=== PATIENT | male | born 1935 | race Caucasian/White ===

== ENCOUNTER 2017-12-05 00:30 | Emergency (ER) | payer MEDICARE ==
[~2017-12-05 00:30] MED LIST: AMLO1CAP2 PO; FENO160T16 PO; PRAV20TA4 PO; SITA100T12 PO; SITA1TAB6 PO
[2017-12-05] MEDS ORDERED: HYDROXYZINE HCL 25 MG TABLET ONE (02:46)
== END 2017-12-05 04:56 | disposition home or self-care (01) ==
LOC: EDH 00:30
DX: R21 Rash and other nonspecific skin eruption (principal)

== ENCOUNTER 2018-10-21 12:11 | Observation (INO) | payer MEDICARE, OTHER ==
[~2018-10-21] VITALS: Ht 167.6 cm; Wt 64.4 kg
[2018-10-21 13:04] LABS: BASOPHILS % (AUTO) 0.6 % (0.0-5.0); EOSINOPHILS % (AUTO) 5.1 % (0.0-8.0); HEMATOCRIT 30.9 % (42-54); LYMPHOCYTES % (AUTO) 11.8 % (21.0-51.0); MEAN CORPUSCULAR HEMOGLOBIN 30.8 pg (27.0-33.0); MEAN CORPUSCULAR HGB CONC 33.2 g/dL (32.0-36.0); MEAN CORPUSCULAR VOLUME 92.8 fL (79-99); MONOCYTES % (AUTO) 6.5 % (3.0-13.0); NUCLEATED RED BLOOD CELLS 0.1 % (0.0-0.19); PLATELET COUNT (AUTO) 227 K/uL (130-400); RED BLOOD CELL COUNT(AUTO) 3.33 MIL/uL (4.50-6.20); RED CELL DISTRIBUTION WIDTH 14.3 % (11.0-15.5); WHITE BLOOD COUNT (AUTO) 6.6 K/uL (4.8-10.8)
[2018-10-21 13:16] LABS: CARBON DIOXIDE 20 mmol/L (21-32); CHLORIDE 104 mmol/L (101-111); CREATININE 2.1 mg/dL (0.5-1.5); GLOMERULAR FILTR. RATE CALC 32 mL/min (>60); GLUCOSE,RANDOM 140 mg/dL (70-105); POTASSIUM 5.1 mmol/L (3.5-5.1); SODIUM SERUM 136 mmol/L (136-145); UREA NITROGEN, BLOOD 34 mg/dL (7-18)
[2018-10-21 13:17] LABS: INR 1.04 (0.85-1.15); PROTHROMBIN TIME 10.9 SEC (9.6-11.6)
[2018-10-21 13:21] LABS: ALANINE AMINOTRANSFERASE 15 U/L (12-78); ALBUMIN 3.2 g/dL (3.5-5.0); ASPARTATE AMINOTRANSFERASE 13 U/L (10-37); BILIRUBIN,TOTAL 0.2 mg/dL (0.2-1.0); TOTAL PROTEIN, SERUM 6.7 g/dL (6.0-8.3)
[2018-10-21 13:22] LABS: ALCOHOL, BLOOD < 3 mg/dL (0-10)
[2018-10-21 14:26] LABS: APPEARANCE,URINE Cloudy (CLEAR); BILIRUBIN,URINE Negative (NEGATIVE); COLOR,URINE Yellow (YELLOW); GLUCOSE, URINE (UA) Negative (NEGATIVE); KETONES,URINE Negative (NEGATIVE); LEUKOCYTE ESTERASE ,URINE Negative (NEGATIVE); NITRATE,URINE Negative (NEGATIVE); OCCULT BLOOD,URINE Negative (NEGATIVE); PROTEIN,URINE POS 1+ (NEGATIVE); UROBILINOGEN,URINE 0.2 mg/dL (0.2-1.0)
[2018-10-21] MEDS: SODIUM CHLORIDE 0.9% 1000ML 1,000 ML IV SCH (14:33)
[2018-10-21] MEDS ORDERED: ONDANSETRON HCL 4 MG/2 ML VIAL IV PRN (14:45)
[2018-10-21] MEDS ORDERED: HYDRALAZINE HCL 20 MG/ML VIAL IV PRN (14:45)
[2018-10-21] MEDS ORDERED: ACETAMINOPHEN 325 MG TAB PO PRN ×2 (14:45)
[2018-10-21 14:52] LABS: AMPHET/METH SCREEN,URINE NEGATIVE (NEGATIVE); BARBITURATE SCREEN, URINE NEGATIVE (NEGATIVE); BENZODIAZEPINES SCREEN,URINE NEGATIVE (NEGATIVE); CANNABINOID SCREEN,URINE NEGATIVE (NEGATIVE); COCAINE SCREEN,URINE NEGATIVE (NEGATIVE); OPIATE SCREEN,URINE NEGATIVE (NEGATIVE); PHENCYCLIDINE SCREEN,URINE NEGATIVE (NEGATIVE)
[2018-10-21 14:58] LABS: % IRON SATURATION 19.6 % (30-44)
[2018-10-21 15:06] LABS: MAGNESIUM 1.9 mg/dL (1.80-2.40); PHOSPHORUS 4.3 mg/dL (2.5-4.9); THYROID STIMULATING HORMONE 4.38 uIU/mL (0.36-3.74)
[2018-10-21 15:08] LABS: BACTERIA,URINE Few /HPF (None Seen); RBC,URINE 0-1 /HPF (0-1)
[2018-10-21 15:09] LABS: MUCUS,URINE Few LPF (None Seen); SQUAMOUS EPITHELIAL CELL,UR Few /HPF (0-2)
[2018-10-21 15:10] LABS: HYALINE CASTS, URINE 0-1 /LPF (0-1 /LPF)
[2018-10-21] MEDS ORDERED: SODIUM CHLORIDE 0.9% 1000ML 1,000 ML IV ONE (16:38)
[2018-10-21] MEDS ORDERED: OSELTAMIVIR PHOSPHATE 75 MG CAP ONE (19:57)
[2018-10-21 23:20] VITALS: BP 114/62
[2018-10-22] MEDS: SODIUM CHLORIDE 0.9% 1000ML 1,000 ML IV SCH ×2 (00:33→13:24)
[2018-10-22 04:32] VITALS: BP 109/70
--- NOTE | 2018-10-22 07:40 | NUR ---
Assessment done. Plan of care discussed with patient. No acute distress at this time.
[2018-10-22 08:08] VITALS: BP 119/66
[2018-10-22] MEDS ORDERED: ENOXAPARIN SODIUM 40 MG/0.4 ML SYRINGE SQ SCH ×2 (09:00)
[2018-10-22] MEDS ORDERED: PANTOPRAZOLE 40 MG/VIAL IVP SCH (09:00)
[2018-10-22] MEDS ORDERED: ENOXAPARIN SODIUM 40 MG/0.4 ML SYRINGE SQ ONE (10:13)
[2018-10-22] MEDS ORDERED: PANTOPRAZOLE SODIUM 40 MG TABLET.DR PO SCH (10:53)
[2018-10-22 11:27] VITALS: BP 155/76
[2018-10-22] MEDS ORDERED: PANTOPRAZOLE SODIUM 40 MG TABLET.DR PO ONE (13:06)
[2018-10-22 13:37] LABS: HEMATOCRIT 32.7 % (42-54); MEAN CORPUSCULAR HEMOGLOBIN 29.9 pg (27.0-33.0); MEAN CORPUSCULAR HGB CONC 32.7 g/dL (32.0-36.0); MEAN CORPUSCULAR VOLUME 91.4 fL (79-99); PLATELET COUNT (AUTO) 224 K/uL (130-400); RED BLOOD CELL COUNT(AUTO) 3.58 MIL/uL (4.50-6.20); RED CELL DISTRIBUTION WIDTH 14.1 % (11.0-15.5); WHITE BLOOD COUNT (AUTO) 5.8 K/uL (4.8-10.8)
[2018-10-22 13:49] LABS: ALBUMIN 3.1 g/dL (3.5-5.0); BILIRUBIN,TOTAL 0.2 mg/dL (0.2-1.0); CREATININE 1.6 mg/dL (0.5-1.5); POTASSIUM 5.2 mmol/L (3.5-5.1); TOTAL PROTEIN, SERUM 6.6 g/dL (6.0-8.3)
[2018-10-22] MEDS ORDERED: OSEL75 PO (15:02)
[2018-10-22] MEDS ORDERED: INSULIN HUMULIN R 100 UNIT/ML 3ML SQ SCH (16:30)
[2018-10-22 17:21] VITALS: BP 151/68
[2018-10-22] MEDS ORDERED: OSELTAMIVIR PHOSPHATE 75 MG CAP PO SCH (21:00)
[2018-10-23] MEDS ORDERED: IRON SUCROSE COMPLEX 100 MG in SODIUM CHLORIDE 0.9% 50 ML IV SCH (09:00)
== END 2018-10-22 18:11 | disposition home or self-care (01) ==
LOC: EDH 12:11 → EDHIP 14:33
PROVIDERS: ADMIT Internal Medicine; ATTEND Internal Medicine
DX: R55 Syncope and collapse (principal); R42 Dizziness and giddiness; M19.90 Unspecified osteoarthritis, unspecified site; C18.9 Malignant neoplasm of colon, unspecified; C34.90 Malignant neoplasm of unspecified part of unspecified bronchus or lung; I12.9 Hypertensive chronic kidney disease with stage 1 through stage 4 chronic kidney disease, or unspecified chronic kidney disease; N18.9 Chronic kidney disease, unspecified; N17.9 Acute kidney failure, unspecified; E11.22 Type 2 diabetes mellitus with diabetic chronic kidney disease; D64.9 Anemia, unspecified; E78.5 Hyperlipidemia, unspecified; E86.0 Dehydration; E86.1 Hypovolemia; J10.1 Influenza due to other identified influenza virus with other respiratory manifestations; J44.9 Chronic obstructive pulmonary disease, unspecified; Z85.038 Personal history of other malignant neoplasm of large intestine; Z85.118 Personal history of other malignant neoplasm of bronchus and lung; Z85.858 Personal history of malignant neoplasm of other endocrine glands; Z87.891 Personal history of nicotine dependence; Z90.49 Acquired absence of other specified parts of digestive tract; Z83.3 Family history of diabetes mellitus; Z82.49 Family history of ischemic heart disease and other diseases of the circulatory system; Z79.899 Other long term (current) drug therapy
CPT/HCPCS: 36415 ×2; 70450; 80053 ×2; 80305; 81001; 82550; 82948; 83540; 83550; 83735; 84100; 84443; 84484; 85025; 85027; 85610; 85730; 87804 ×2; 93005; 93306; 93880; 96360; 96361 ×2; 96372; 99284; G0378 ×28; G0480; J1650; J7030; J1756

== ENCOUNTER 2022-06-24 14:19 | Emergency (ER) | payer OTHER ==
[~2022-06-24] VITALS: Ht 182.9 cm; Wt 59.0 kg
[~2022-06-24 14:19] MED LIST changes: -AMLO1CAP2 PO; -FENO160T16 PO; +OSEL75 PO; -PRAV20TA4 PO; -SITA100T12 PO; -SITA1TAB6 PO
[2022-06-24 14:59] LABS: BASOPHILS % (AUTO) 0.5 % (0.0-5.0); EOSINOPHILS % (AUTO) 3.5 % (0.0-8.0); HEMATOCRIT 30.7 % (42-54); LYMPHOCYTES % (AUTO) 23.7 % (21.0-51.0); MEAN CORPUSCULAR HEMOGLOBIN 31.8 pg (27.0-33.0); MEAN CORPUSCULAR HGB CONC 31.9 g/dL (32.0-36.0); MEAN CORPUSCULAR VOLUME 99.7 fL (79-99); MONOCYTES % (AUTO) 8.3 % (3.0-13.0); NEUTROPHILS % (AUTO) 63.7 % (40.0-77.0); PLATELET COUNT (AUTO) 171 K/uL (130-400); RED BLOOD CELL COUNT(AUTO) 3.08 MIL/uL (4.50-6.20); RED CELL DISTRIBUTION WIDTH 14.8 % (11.0-15.5); WHITE BLOOD COUNT (AUTO) 6.6 K/uL (4.8-10.8)
[2022-06-24 15:09] LABS: POTASSIUM 5.5 mmol/L (3.5-5.1)
[2022-06-24 15:14] LABS: APPEARANCE,URINE TURBID (CLEAR); BILIRUBIN,URINE NEGATIVE (NEGATIVE); COLOR,URINE RED (YELLOW); GLUCOSE, URINE (UA) NEGATIVE (NEGATIVE); KETONES,URINE NEGATIVE (NEGATIVE); LEUKOCYTE ESTERASE ,URINE TRACE (NEGATIVE); NITRATE,URINE NEGATIVE (NEGATIVE); OCCULT BLOOD,URINE LARGE (NEGATIVE); PROTEIN,URINE 100 mg/dL (NEGATIVE); UROBILINOGEN,URINE 0.2 mg/dL (0.2-1.0)
[2022-06-24 15:14] LABS: ALBUMIN 3.8 g/dL (3.5-5.0); TOTAL PROTEIN, SERUM 6.9 g/dL (6.0-8.3)
[2022-06-24 15:30] LABS: BACTERIA,URINE Rare /HPF (None Seen); RBC,URINE TNTC /HPF (0-1); SQUAMOUS EPITHELIAL CELL,UR None Seen /HPF (0-2); WBC,URINE 0-1 /HPF (0-1)
[2022-06-24] MEDS ORDERED: 0.9%NACL 1000ML 1,000 ML IV ONE (16:30)
[2022-06-24 18:28] VITALS: BP 133/64
== END 2022-06-24 18:48 | disposition home or self-care (01) ==
LOC: EDH 14:19
DX: N32.89 Other specified disorders of bladder (principal); R31.9 Hematuria, unspecified; I10 Essential (primary) hypertension; Z85.118 Personal history of other malignant neoplasm of bronchus and lung; Z85.038 Personal history of other malignant neoplasm of large intestine
CPT/HCPCS: 36415; 71250; 74176; 80053; 81001; 85025

== ENCOUNTER 2023-05-28 14:37 | Inpatient (IN) | payer OTHER ==
[~2023-05-28] VITALS: Ht 160 cm; Wt 48.6 kg
[2023-05-28] VITALS (11 sets, daily range): BP systolic 110–135; BP diastolic 52–62; PULSE 48–58; RESP 8–24; O2SAT 96
[~2023-05-28 14:37] MED LIST changes: +FOLI1TAB85 PO; -OSEL75 PO
[2023-05-28] MEDS ORDERED: ZOSYN 3.375GM+NS 50ML 50 ML IVPB ONE (14:56)
[2023-05-28] MEDS ORDERED: 0.9%NACL 1000ML 1,000 ML IV ONE (14:56)
[2023-05-28 15:27] LABS: APPEARANCE,URINE CLOUDY (CLEAR); BILIRUBIN,URINE NEGATIVE (NEGATIVE); COLOR,URINE YELLOW (YELLOW); GLUCOSE, URINE (UA) NEGATIVE (NEGATIVE); KETONES,URINE NEGATIVE (NEGATIVE); LEUKOCYTE ESTERASE ,URINE 500 Leu/uL (NEGATIVE); NITRATE,URINE NEGATIVE (NEGATIVE); OCCULT BLOOD,URINE MODERATE (NEGATIVE); PROTEIN,URINE 100 mg/dL (NEGATIVE); UROBILINOGEN,URINE 0.2 mg/dL (0.2-1.0)
[2023-05-28 15:27] LABS: BASOPHILS # (AUTO) 0.01 K/uL (0.00-0.20); BASOPHILS % (AUTO) 0.1 % (0.0-5.0); HEMATOCRIT 26.9 % (42-54); IMMATURE GRANULOCYTE ABSOLUTE 0.04 K/uL (0-1); LYMPHOCYTES # (AUTO) 0.2 K/uL (1.0-4.8); LYMPHOCYTES % (AUTO) 2.6 % (21.0-51.0); MEAN CORPUSCULAR HEMOGLOBIN 31.7 pg (27.0-33.0); MEAN CORPUSCULAR HGB CONC 32.7 g/dL (32.0-36.0); MEAN CORPUSCULAR VOLUME 96.8 fL (79-99); MONOCYTES # (AUTO) 0.1 K/uL (0.1-1.0); MONOCYTES % (AUTO) 1.9 % (3.0-13.0); NEUTROPHILS # (AUTO) 6.9 K/uL (1.8-7.7); NEUTROPHILS % (AUTO) 94.8 % (40.0-77.0); PLATELET COUNT (AUTO) 86 K/uL (130-400); RED BLOOD CELL COUNT(AUTO) 2.78 MIL/uL (4.50-6.20); WHITE BLOOD COUNT (AUTO) 7.3 K/uL (4.8-10.8)
[2023-05-28 15:31] LABS: ADD UA MICROSCOPIC YES
[2023-05-28 15:36] LABS: BACTERIA,URINE MOD /HPF (None Seen); SQUAMOUS EPITHELIAL CELL,UR RARE /HPF (0-2); WBC,URINE TNTC /HPF (0-1)
[2023-05-28 15:37] LABS: ALBUMIN 2.4 g/dL (3.5-5.0); BILIRUBIN,TOTAL 0.4 mg/dL (0.2-1.0); CREATININE 2.7 mg/dL (0.5-1.5); MAGNESIUM 1.8 mg/dL (1.80-2.40); TOTAL PROTEIN, SERUM 6.3 g/dL (6.0-8.3)
[2023-05-28 15:41] LABS: INR 1.05 (0.85-1.15); PROTHROMBIN TIME 12.1 SEC (9.6-11.6)
[2023-05-28 15:43] LABS: PARTIAL THROMBOPLASTIN TIME 69.5 SEC (26.3-35.5)
[2023-05-28 16:01] LABS: INFLUENZA TYPE A Negative For Type A (NEGATIVE); INFLUENZA TYPE B Negative For Type B (NEGATIVE)
[2023-05-28 16:14] LABS: SARS-CoV-2, RNA, NAAT NEGATIVE SARS CoV-2 (NEGATIVE)
[2023-05-28] MEDS ORDERED: PHARMACY COMMUNICATION MISC STA (16:31)
[2023-05-28] MEDS ORDERED: MEROPENEM 500 MG/100ML CRCL 10-25 IV SCH ×2 (17:00)
[2023-05-28] MEDS ORDERED: NOREPINEPHRIN 4MG/NS 250ML 250 ML IV SCH (17:00)
[2023-05-28] MEDS ORDERED: VANCOMYCIN PROTOCOL PER PHARMACY IV SCH (17:00)
[2023-05-28] MEDS ORDERED: ACETAMINOPHEN 325 MG TAB PO ONE (17:00)
[2023-05-28] MEDS ORDERED: VANCOMYCIN KIT 1 GM/250 ML IV.KIT IV SCH (17:30)
[2023-05-28] MEDS ORDERED: MEROPENEM 500 MG/100ML CRCL 10-25 IV ONE ×2 (17:30)
[2023-05-28] MEDS ORDERED: KCL 20 MEQ ERTAB PO ONE (19:00)
[2023-05-29] VITALS (52 sets, daily range): BP systolic 89–150; BP diastolic 38–94; PULSE 51–76; RESP 14–40; O2SAT 94–98
[2023-05-29 03:46] LABS: BASOPHILS # (AUTO) 0.03 K/uL (0.00-0.20); BASOPHILS % (AUTO) 0.3 % (0.0-5.0); EOSINOPHILS # (AUTO) 0.04 K/uL (0.00-0.70); EOSINOPHILS % (AUTO) 0.4 % (0.0-8.0); HEMATOCRIT 28.2 % (42-54); IMMATURE GRANULOCYTE ABSOLUTE 0.08 K/uL (0-1); LYMPHOCYTES # (AUTO) 0.8 K/uL (1.0-4.8); LYMPHOCYTES % (AUTO) 7.5 % (21.0-51.0); MEAN CORPUSCULAR HEMOGLOBIN 31.7 pg (27.0-33.0); MEAN CORPUSCULAR HGB CONC 32.3 g/dL (32.0-36.0); MEAN CORPUSCULAR VOLUME 98.3 fL (79-99); MONOCYTES # (AUTO) 0.9 K/uL (0.1-1.0); MONOCYTES % (AUTO) 8.5 % (3.0-13.0); NEUTROPHILS # (AUTO) 8.5 K/uL (1.8-7.7); NEUTROPHILS % (AUTO) 82.5 % (40.0-77.0); PLATELET COUNT (AUTO) 71 K/uL (130-400); RED BLOOD CELL COUNT(AUTO) 2.87 MIL/uL (4.50-6.20); RED CELL DISTRIBUTION WIDTH 15.2 % (11.0-15.5); WHITE BLOOD COUNT (AUTO) 10.3 K/uL (4.8-10.8)
[2023-05-29 04:05] LABS: CREATININE 3.5 mg/dL (0.5-1.5); PHOSPHORUS 4.1 mg/dL (2.5-4.9)
[2023-05-29] MEDS ORDERED: POTASSIUM CHLORIDE 10MEQ/100ML 10 MEQ/100 ML ML IV ONE (05:00)
[2023-05-29] MEDS ORDERED: NITROGLYCERIN 0.4 MG SL TAB SL PRN (09:30)
[2023-05-29] MEDS ORDERED: GUAIFENESIN-DM 200/20 MG 10 ML PO PRN (09:30)
[2023-05-29] MEDS ORDERED: DiphenhydrAMINE HCL 50 MG/ML VIAL IV PRN (09:30)
[2023-05-29] MEDS ORDERED: DIPHENHYDRAMINE HCL 25 MG CAPSULE PO PRN (09:30)
[2023-05-29] MEDS ORDERED: ACETAMINOPHEN 325 MG TAB PO PRN (09:30)
[2023-05-29] MEDS ORDERED: LACTULOSE 20 GM/30 ML UDCUP PO PRN (09:30)
[2023-05-29] MEDS ORDERED: ONDANSETRON 4MG INJ IV PRN (09:30)
[2023-05-29] MEDS ORDERED: MAG/ALUM/SIMETH 30 ML UDCUP PO PRN (09:30)
[2023-05-29] MEDS ORDERED: MIDODRINE HCL 5 MG TABLET ONE (11:48)
[2023-05-29] MEDS: MIDODRINE HCL 5 MG TABLET PO SCH ×3 (11:51→21:07)
[2023-05-29] MEDS: HEPARIN 5,000 UNIT VIAL SQ SCH ×2 (13:35→21:12)
[2023-05-29] MEDS ORDERED: KCL 20 MEQ ERTAB PO ONE (16:00)
[2023-05-29] MEDS: MEROPENEM IV SCH ×2 (17:26)
[2023-05-29] MEDS: NS IV SCH ×2 (17:26)
[2023-05-29] MEDS: [UNRECOGNIZED DRUG - OTHER] IV SCH ×2 (17:26)
[2023-05-29] MEDS ORDERED: FAMOTIDINE 20MG VIAL IV SCH (21:00)
[2023-05-29] MEDS: FAMOTIDINE 20MG TAB PO SCH (21:07)
[2023-05-30] VITALS (24 sets, daily range): BP systolic 87–136; BP diastolic 42–80; PULSE 54–77; RESP 16–20; TEMP 98–98.2; O2SAT 97–100
[2023-05-30 03:56] LABS: BASOPHILS # (AUTO) 0.03 K/uL (0.00-0.20); BASOPHILS % (AUTO) 0.3 % (0.0-5.0); EOSINOPHILS # (AUTO) 0.06 K/uL (0.00-0.70); EOSINOPHILS % (AUTO) 0.6 % (0.0-8.0); IMMATURE GRANULOCYTE ABSOLUTE 0.16 K/uL (0-1); LYMPHOCYTES # (AUTO) 1.1 K/uL (1.0-4.8); LYMPHOCYTES % (AUTO) 10.8 % (21.0-51.0); MEAN CORPUSCULAR HEMOGLOBIN 31.3 pg (27.0-33.0); MEAN CORPUSCULAR HGB CONC 32.4 g/dL (32.0-36.0); MEAN CORPUSCULAR VOLUME 96.7 fL (79-99); MONOCYTES % (AUTO) 9.7 % (3.0-13.0); NEUTROPHILS # (AUTO) 7.7 K/uL (1.8-7.7); PLATELET COUNT (AUTO) 69 K/uL (130-400); RED CELL DISTRIBUTION WIDTH 15.4 % (11.0-15.5); WHITE BLOOD COUNT (AUTO) 10.1 K/uL (4.8-10.8)
[2023-05-30 04:10] LABS: CREATININE 4.6 mg/dL (0.5-1.5); PHOSPHORUS 3.8 mg/dL (2.5-4.9); POTASSIUM 3.5 mmol/L (3.5-5.1)
[2023-05-30 05:28] LABS: HEPATITIS B SURFACE ANTIGEN Non-Reactive (Nonreactive)
[2023-05-30] MEDS: MIDODRINE HCL 5 MG TABLET PO SCH ×3 (09:51→20:46)
[2023-05-30] MEDS: HEPARIN 5,000 UNIT VIAL SQ SCH ×3 (09:51→21:00)
[2023-05-30] MEDS ORDERED: COMPOUND IV MISC 1 EACH IVSOLN MISC PRN (12:00)
[2023-05-30] MEDS ORDERED: VANCOMYCIN 750MG VIAL IVPB SCH (16:00)
[2023-05-30] MEDS: MEROPENEM IV SCH ×2 (18:25)
[2023-05-30] MEDS: NS IV SCH ×2 (18:25)
[2023-05-30] MEDS: [UNRECOGNIZED DRUG - OTHER] IV SCH ×2 (18:25)
[2023-05-30] MEDS: FAMOTIDINE 20MG TAB PO SCH (20:46)
[2023-05-31] MEDS ORDERED: FENTANYL CITRATE PF 50 MCG/1 ML 2ML VIAL ONE (10:02)
[2023-05-31] MEDS ORDERED: MIDAZOLAM HCL 1 MG/ML 2ML VIAL ONE (10:02)
[2023-05-31] MEDS ORDERED: LIDOCAINE HCL 1% MDV 50ML VIAL ONE (10:02)
[2023-05-31] MEDS ORDERED: HEPARIN 1,000 UNIT VIAL ONE (10:24)
[2023-05-31] MEDS ORDERED: OCTYL 2-CYANOACRYLATE 1 EACH TP ONE (10:30)
[2023-05-31] MEDS: MEROPENEM IV SCH ×2 (18:00)
[2023-05-31] MEDS: NS IV SCH ×2 (18:00)
[2023-05-31] MEDS: [UNRECOGNIZED DRUG - OTHER] IV SCH ×2 (18:00)
[2023-05-31 20:35] VITALS: O2SAT 95
[2023-05-31] MEDS: HEPARIN 5,000 UNIT VIAL SQ SCH (21:00)
[2023-05-31] MEDS: FAMOTIDINE 20MG TAB PO SCH (21:00)
[2023-05-31] MEDS: MIDODRINE HCL 5 MG TABLET PO SCH (21:00)
[2023-06-01] VITALS (7 sets, daily range): BP systolic 114–137; BP diastolic 48–66; PULSE 62–72; RESP 16; O2SAT 98
[2023-06-01 03:41] LABS: BASOPHILS # (AUTO) 0.02 K/uL (0.00-0.20); BASOPHILS % (AUTO) 0.2 % (0.0-5.0); EOSINOPHILS # (AUTO) 0.04 K/uL (0.00-0.70); EOSINOPHILS % (AUTO) 0.4 % (0.0-8.0); HEMATOCRIT 29.5 % (42-54); IMMATURE GRANULOCYTE ABSOLUTE 0.08 K/uL (0-1); LYMPHOCYTES # (AUTO) 1.2 K/uL (1.0-4.8); LYMPHOCYTES % (AUTO) 11.9 % (21.0-51.0); MEAN CORPUSCULAR HGB CONC 32.2 g/dL (32.0-36.0); MEAN CORPUSCULAR VOLUME 96.4 fL (79-99); MONOCYTES # (AUTO) 0.6 K/uL (0.1-1.0); MONOCYTES % (AUTO) 6.4 % (3.0-13.0); NEUTROPHILS % (AUTO) 80.3 % (40.0-77.0); PLATELET COUNT (AUTO) 105 K/uL (130-400); RED BLOOD CELL COUNT(AUTO) 3.06 MIL/uL (4.50-6.20)
[2023-06-01 03:51] LABS: CREATININE 4.5 mg/dL (0.5-1.5); POTASSIUM 3.2 mmol/L (3.5-5.1)
[2023-06-01] MEDS ORDERED: POTASSIUM CHLORIDE 20 MEQ/100 ML BAG IV SCH (08:00)
[2023-06-01 08:30] LABS: HEMATOCRIT 29.1 % (42-54); MEAN CORPUSCULAR HEMOGLOBIN 31.7 pg (27.0-33.0); MEAN CORPUSCULAR HGB CONC 32.6 g/dL (32.0-36.0); PLATELET COUNT (AUTO) 78 K/uL (130-400); RED CELL DISTRIBUTION WIDTH 15.1 % (11.0-15.5); WHITE BLOOD COUNT (AUTO) 8.6 K/uL (4.8-10.8)
[2023-06-01 08:31] LABS: BASOPHILS % (AUTO) 0.2 % (0.0-5.0); EOSINOPHILS % (AUTO) 0.5 % (0.0-8.0); LYMPHOCYTES % (AUTO) 11.8 % (21.0-51.0); MONOCYTES % (AUTO) 8.3 % (3.0-13.0)
[2023-06-01 08:32] LABS: BASOPHILS # (AUTO) 0.02 K/uL (0.00-0.20); EOSINOPHILS # (AUTO) 0.04 K/uL (0.00-0.70); MONOCYTES # (AUTO) 0.7 K/uL (0.1-1.0); NEUTROPHILS # (AUTO) 6.7 K/uL (1.8-7.7)
[2023-06-01 08:33] LABS: POTASSIUM 3.3 mmol/L (3.5-5.1)
[2023-06-01 08:34] LABS: CREATININE 3.6 mg/dL (0.5-1.5)
[2023-06-01] MEDS: HEPARIN 5,000 UNIT VIAL SQ SCH ×3 (09:44→22:06)
[2023-06-01] MEDS: MIDODRINE HCL 5 MG TABLET PO SCH ×3 (09:45→22:01)
[2023-06-01] MEDS: NS IV SCH ×2 (18:02)
[2023-06-01] MEDS: [UNRECOGNIZED DRUG - OTHER] IV SCH ×2 (18:02)
[2023-06-01] MEDS: MEROPENEM IV SCH ×2 (18:02)
[2023-06-01] MEDS: FAMOTIDINE 20MG TAB PO SCH (22:00)
[2023-06-02] VITALS (23 sets, daily range): BP systolic 93–149; BP diastolic 56–72; PULSE 55–80; RESP 16–20; TEMP 98–98.2; O2SAT 97
[2023-06-02 03:50] LABS: BASOPHILS # (AUTO) 0.02 K/uL (0.00-0.20); BASOPHILS % (AUTO) 0.2 % (0.0-5.0); EOSINOPHILS # (AUTO) 0.09 K/uL (0.00-0.70); EOSINOPHILS % (AUTO) 0.8 % (0.0-8.0); IMMATURE GRANULOCYTE ABSOLUTE 0.09 K/uL (0-1); LYMPHOCYTES # (AUTO) 1.1 K/uL (1.0-4.8); LYMPHOCYTES % (AUTO) 9.6 % (21.0-51.0); MEAN CORPUSCULAR HEMOGLOBIN 31.3 pg (27.0-33.0); MEAN CORPUSCULAR HGB CONC 32.4 g/dL (32.0-36.0); MEAN CORPUSCULAR VOLUME 96.7 fL (79-99); MONOCYTES # (AUTO) 0.6 K/uL (0.1-1.0); MONOCYTES % (AUTO) 5.4 % (3.0-13.0); NEUTROPHILS # (AUTO) 9.4 K/uL (1.8-7.7); NEUTROPHILS % (AUTO) 83.2 % (40.0-77.0); PLATELET COUNT (AUTO) 141 K/uL (130-400); RED CELL DISTRIBUTION WIDTH 14.9 % (11.0-15.5); WHITE BLOOD COUNT (AUTO) 11.3 K/uL (4.8-10.8)
[2023-06-02 04:02] LABS: ALBUMIN 1.8 g/dL (3.5-5.0); BILIRUBIN,TOTAL 0.3 mg/dL (0.2-1.0); CREATININE 5.6 mg/dL (0.5-1.5); PHOSPHORUS 4.5 mg/dL (2.5-4.9); POTASSIUM 3.7 mmol/L (3.5-5.1); TOTAL PROTEIN, SERUM 5.6 g/dL (6.0-8.3)
[2023-06-02] MEDS: MIDODRINE HCL 5 MG TABLET PO SCH ×3 (09:06→20:59)
[2023-06-02] MEDS: HEPARIN 5,000 UNIT VIAL SQ SCH ×3 (09:10→21:03)
[2023-06-02] MEDS ORDERED: HEPARIN 5,000 UNIT VIAL IV STA (15:02)
[2023-06-02] MEDS: MEROPENEM IV SCH ×2 (18:14)
[2023-06-02] MEDS: NS IV SCH ×2 (18:14)
[2023-06-02] MEDS: [UNRECOGNIZED DRUG - OTHER] IV SCH ×2 (18:14)
[2023-06-02] MEDS: FAMOTIDINE 20MG TAB PO SCH (20:59)
[2023-06-03] VITALS (8 sets, daily range): BP systolic 111–143; BP diastolic 54–69; PULSE 60–75; RESP 18–20; O2SAT 97
[2023-06-03 04:06] LABS: HEMATOCRIT 28.9 % (42-54); MEAN CORPUSCULAR HEMOGLOBIN 31.1 pg (27.0-33.0); MEAN CORPUSCULAR HGB CONC 32.2 g/dL (32.0-36.0); MEAN CORPUSCULAR VOLUME 96.7 fL (79-99); PLATELET COUNT (AUTO) 141 K/uL (130-400); RED BLOOD CELL COUNT(AUTO) 2.99 MIL/uL (4.50-6.20); RED CELL DISTRIBUTION WIDTH 14.6 % (11.0-15.5); WHITE BLOOD COUNT (AUTO) 10.9 K/uL (4.8-10.8)
[2023-06-03 04:33] LABS: ALBUMIN 1.8 g/dL (3.5-5.0); BILIRUBIN,TOTAL 0.4 mg/dL (0.2-1.0); CREATININE 3.6 mg/dL (0.5-1.5); MAGNESIUM 1.8 mg/dL (1.80-2.40); PHOSPHORUS 4.5 mg/dL (2.5-4.9); POTASSIUM 3.6 mmol/L (3.5-5.1); TOTAL PROTEIN, SERUM 5.6 g/dL (6.0-8.3)
[2023-06-03 04:46] LABS: LYMPHOCYTES % (MANUAL) 8 % (22-44); MAN.DIFF COMMENT-IMPRESSION MANUAL DIFFERENTIAL; MONOCYTES % (MANUAL) 3 % (2-9); MYELOCYTES % 1 % (0-0); SEGMENTED NEUTROPHILS % 88 % (40-70); TOTAL CELLS COUNTED 100
[2023-06-03 04:47] LABS: PLATELET MORPHOLOGY COMMENT ADEQUATE
[2023-06-03] MEDS: MIDODRINE HCL 5 MG TABLET PO SCH ×3 (09:10→20:36)
[2023-06-03] MEDS: HEPARIN 5,000 UNIT VIAL SQ SCH ×3 (09:14→20:37)
[2023-06-03] MEDS: MEROPENEM IV SCH ×2 (17:01)
[2023-06-03] MEDS: [UNRECOGNIZED DRUG - OTHER] IV SCH ×2 (17:01)
[2023-06-03] MEDS: NS IV SCH ×2 (17:01)
[2023-06-03] MEDS: FAMOTIDINE 20MG TAB PO SCH (20:37)
[2023-06-04] VITALS (22 sets, daily range): BP systolic 107–138; BP diastolic 56–67; PULSE 58–70; RESP 16–18; TEMP 97.9–98.4; O2SAT 99
[2023-06-04 04:02] LABS: BASOPHILS # (AUTO) 0.03 K/uL (0.00-0.20); BASOPHILS % (AUTO) 0.2 % (0.0-5.0); EOSINOPHILS # (AUTO) 0.06 K/uL (0.00-0.70); EOSINOPHILS % (AUTO) 0.4 % (0.0-8.0); HEMATOCRIT 29.4 % (42-54); IMMATURE GRANULOCYTE ABSOLUTE 0.13 K/uL (0-1); LYMPHOCYTES # (AUTO) 1.3 K/uL (1.0-4.8); LYMPHOCYTES % (AUTO) 9.9 % (21.0-51.0); MEAN CORPUSCULAR HEMOGLOBIN 30.6 pg (27.0-33.0); MEAN CORPUSCULAR HGB CONC 31.6 g/dL (32.0-36.0); MEAN CORPUSCULAR VOLUME 96.7 fL (79-99); MONOCYTES # (AUTO) 0.7 K/uL (0.1-1.0); MONOCYTES % (AUTO) 5.2 % (3.0-13.0); NEUTROPHILS # (AUTO) 11.2 K/uL (1.8-7.7); NEUTROPHILS % (AUTO) 83.3 % (40.0-77.0); PLATELET COUNT (AUTO) 180 K/uL (130-400); RED BLOOD CELL COUNT(AUTO) 3.04 MIL/uL (4.50-6.20); RED CELL DISTRIBUTION WIDTH 14.6 % (11.0-15.5); WHITE BLOOD COUNT (AUTO) 13.4 K/uL (4.8-10.8)
[2023-06-04 04:22] LABS: ALBUMIN 1.8 g/dL (3.5-5.0); BILIRUBIN,DIRECT 0.1 mg/dL (0.0-0.3); BILIRUBIN,TOTAL 0.4 mg/dL (0.2-1.0); CREATININE 4.8 mg/dL (0.5-1.5); PHOSPHORUS 5.9 mg/dL (2.5-4.9); POTASSIUM 3.7 mmol/L (3.5-5.1); TOTAL PROTEIN, SERUM 5.9 g/dL (6.0-8.3)
[2023-06-04] MEDS: MIDODRINE HCL 5 MG TABLET PO SCH ×3 (08:37→20:27)
[2023-06-04] MEDS: HEPARIN 5,000 UNIT VIAL SQ SCH ×3 (08:38→20:31)
[2023-06-04] MEDS: MEROPENEM IV SCH ×2 (17:11)
[2023-06-04] MEDS: [UNRECOGNIZED DRUG - OTHER] IV SCH ×2 (17:11)
[2023-06-04] MEDS: NS IV SCH ×2 (17:11)
[2023-06-04] MEDS: HEPARIN 5,000 UNIT VIAL SQ PRN (17:30)
[2023-06-04] MEDS: FAMOTIDINE 20MG TAB PO SCH (20:29)
[2023-06-05] VITALS (7 sets, daily range): BP systolic 118–152; BP diastolic 59–85; PULSE 65–81; RESP 18–19; O2SAT 98
[2023-06-05 05:15] LABS: HEMATOCRIT 29.3 % (42-54); MEAN CORPUSCULAR HEMOGLOBIN 30.8 pg (27.0-33.0); MEAN CORPUSCULAR HGB CONC 32.1 g/dL (32.0-36.0); MEAN CORPUSCULAR VOLUME 96.1 fL (79-99); RED BLOOD CELL COUNT(AUTO) 3.05 MIL/uL (4.50-6.20); RED CELL DISTRIBUTION WIDTH 14.4 % (11.0-15.5); WHITE BLOOD COUNT (AUTO) 11.3 K/uL (4.8-10.8)
[2023-06-05 05:31] LABS: ALBUMIN 1.9 g/dL (3.5-5.0); BILIRUBIN,TOTAL 0.3 mg/dL (0.2-1.0); CREATININE 3.3 mg/dL (0.5-1.5); MAGNESIUM 1.9 mg/dL (1.80-2.40); POTASSIUM 3.8 mmol/L (3.5-5.1); TOTAL PROTEIN, SERUM 6.1 g/dL (6.0-8.3)
[2023-06-05] MEDS: MIDODRINE HCL 5 MG TABLET PO SCH ×3 (10:54→20:06)
[2023-06-05] MEDS: HEPARIN 5,000 UNIT VIAL SQ SCH ×3 (10:55→20:08)
[2023-06-05 17:16] LABS: INR 1.01 (0.85-1.15); PROTHROMBIN TIME 11.7 SEC (9.6-11.6)
[2023-06-05 17:18] LABS: PARTIAL THROMBOPLASTIN TIME 44.7 SEC (26.3-35.5)
[2023-06-05] MEDS: FAMOTIDINE 20MG TAB PO SCH (20:06)
[2023-06-05] MEDS: [UNRECOGNIZED DRUG - OTHER] IV SCH ×2 (21:13)
[2023-06-05] MEDS: NS IV SCH ×2 (21:13)
[2023-06-05] MEDS: MEROPENEM IV SCH ×2 (21:13)
[2023-06-06] VITALS (24 sets, daily range): BP systolic 96–150; BP diastolic 52–80; PULSE 54–71; RESP 16–18; TEMP 98.2–98.3; O2SAT 94–96
[2023-06-06 05:06] LABS: BASOPHILS # (AUTO) 0.02 K/uL (0.00-0.20); BASOPHILS % (AUTO) 0.2 % (0.0-5.0); HEMATOCRIT 29.1 % (42-54); IMMATURE GRANULOCYTE ABSOLUTE 0.05 K/uL (0-1); LYMPHOCYTES # (AUTO) 1.3 K/uL (1.0-4.8); LYMPHOCYTES % (AUTO) 13.9 % (21.0-51.0); MEAN CORPUSCULAR HEMOGLOBIN 30.9 pg (27.0-33.0); MEAN CORPUSCULAR HGB CONC 31.6 g/dL (32.0-36.0); MEAN CORPUSCULAR VOLUME 97.7 fL (79-99); MONOCYTES # (AUTO) 0.7 K/uL (0.1-1.0); MONOCYTES % (AUTO) 7.2 % (3.0-13.0); NEUTROPHILS # (AUTO) 7.4 K/uL (1.8-7.7); NEUTROPHILS % (AUTO) 77.2 % (40.0-77.0); PLATELET COUNT (AUTO) 196 K/uL (130-400); RED BLOOD CELL COUNT(AUTO) 2.98 MIL/uL (4.50-6.20); RED CELL DISTRIBUTION WIDTH 14.2 % (11.0-15.5); WHITE BLOOD COUNT (AUTO) 9.6 K/uL (4.8-10.8)
[2023-06-06 05:27] LABS: ALBUMIN 1.9 g/dL (3.5-5.0); BILIRUBIN,TOTAL 0.3 mg/dL (0.2-1.0); CREATININE 4.4 mg/dL (0.5-1.5); POTASSIUM 3.9 mmol/L (3.5-5.1)
[2023-06-06] MEDS: MIDODRINE HCL 5 MG TABLET PO SCH ×4 (08:53→20:12)
[2023-06-06] MEDS: HEPARIN 5,000 UNIT VIAL SQ SCH ×3 (09:00→20:13)
[2023-06-06] MEDS: HEPARIN 5,000 UNIT VIAL SQ PRN (17:15)
[2023-06-06] MEDS: MEROPENEM IV SCH ×2 (17:53)
[2023-06-06] MEDS: NS IV SCH ×2 (17:53)
[2023-06-06] MEDS: [UNRECOGNIZED DRUG - OTHER] IV SCH ×2 (17:53)
[2023-06-06] MEDS: FAMOTIDINE 20MG TAB PO SCH (20:12)
[2023-06-07] VITALS (7 sets, daily range): BP systolic 105–138; BP diastolic 51–71; PULSE 57–82; RESP 16–18; O2SAT 98–99
[2023-06-07] MEDS: ACETAMINOPHEN 325 MG TAB PO PRN ×2 (00:48→12:10)
[2023-06-07 04:05] LABS: ALBUMIN 1.9 g/dL (3.5-5.0); BILIRUBIN,TOTAL 0.3 mg/dL (0.2-1.0); CREATININE 3.6 mg/dL (0.5-1.5); POTASSIUM 3.9 mmol/L (3.5-5.1); TOTAL PROTEIN, SERUM 6.1 g/dL (6.0-8.3)
[2023-06-07] MEDS: MIDODRINE HCL 5 MG TABLET PO SCH ×3 (09:07→21:20)
[2023-06-07] MEDS: HEPARIN 5,000 UNIT VIAL SQ SCH ×3 (09:16→21:25)
[2023-06-07] MEDS: MEROPENEM IV SCH ×2 (18:00)
[2023-06-07] MEDS: [UNRECOGNIZED DRUG - OTHER] IV SCH ×2 (18:00)
[2023-06-07] MEDS: NS IV SCH ×2 (18:00)
[2023-06-07] MEDS: FAMOTIDINE 20MG TAB PO SCH (21:20)
== END 2023-06-07 23:00 | DRG 871 ==
LOC: EDH 14:37 → EDHIP 16:31 → 2CH 21:28 → 2AH 05-29 13:20 → 3DH 06-05 11:50
PROVIDERS: ADMIT Internal Medicine; ATTEND Internal Medicine
PROC: 5A1D70Z Performance of Urinary Filtration, Intermittent, Less than 6 Hours Per Day (ICD-10-PCS; 2023-05-30)
PROC: 0JPT0WZ Removal of Totally Implantable Vascular Access Device from Trunk Subcutaneous Tissue and Fascia, Open Approach (ICD-10-PCS; principal; 2023-05-31)
PROC: 5A1D70Z Performance of Urinary Filtration, Intermittent, Less than 6 Hours Per Day (ICD-10-PCS; 2023-06-02)
PROC: 5A1D70Z Performance of Urinary Filtration, Intermittent, Less than 6 Hours Per Day (ICD-10-PCS; 2023-06-04)
PROC: 02HV33Z Insertion of Infusion Device into Superior Vena Cava, Percutaneous Approach (ICD-10-PCS; 2023-06-05)
PROC: 5A1D70Z Performance of Urinary Filtration, Intermittent, Less than 6 Hours Per Day (ICD-10-PCS; 2023-06-06)
DX: A41.51 Sepsis due to Escherichia coli [E. coli] (principal); I21.A1 Myocardial infarction type 2; N18.6 End stage renal disease; R65.21 Severe sepsis with septic shock; E44.0 Moderate protein-calorie malnutrition; N13.6 Pyonephrosis; I12.0 Hypertensive chronic kidney disease with stage 5 chronic kidney disease or end stage renal disease; Z16.12 Extended spectrum beta lactamase (ESBL) resistance; E11.22 Type 2 diabetes mellitus with diabetic chronic kidney disease; E87.6 Hypokalemia; E88.09 Other disorders of plasma-protein metabolism, not elsewhere classified; D64.9 Anemia, unspecified; D69.59 Other secondary thrombocytopenia; E78.00 Pure hypercholesterolemia, unspecified; I25.10 Atherosclerotic heart disease of native coronary artery without angina pectoris; D75.839 Thrombocytosis, unspecified; Z87.440 Personal history of urinary (tract) infections; Z99.2 Dependence on renal dialysis; Z74.01 Bed confinement status; Z85.038 Personal history of other malignant neoplasm of large intestine; Z85.118 Personal history of other malignant neoplasm of bronchus and lung; Z85.51 Personal history of malignant neoplasm of bladder; Z85.528 Personal history of other malignant neoplasm of kidney; Z86.19 Personal history of other infectious and parasitic diseases; Z87.891 Personal history of nicotine dependence
CPT/HCPCS: 36415; 36569; 36580; 36590; 71045; 74176; 77001; 80048; 80053; 80076; 81001; 82550; 83605; 83735; 83880; 84100; 84484; 85025; 85027; 85610; 85730; 86704; 86706; 86850; 86900; 86901; 87040; 87070; 87077; 87088; 87186; 87340; 87635; 87804; 90935; 93005; 93306; 93356; 97039; 99291; C1769; C1894; C9803; G0378; J1644; J2185; J2250; J2543; J3010; J3370; J3480; J3490; J7030; C1750

== ENCOUNTER 2023-08-22 11:32 | Emergency (ER) | payer OTHER ==
[~2023-08-22] VITALS: Ht 175.3 cm; Wt 52.2 kg
[2023-08-22 12:34] LABS: BASOPHILS # (AUTO) 0.03 K/uL (0.00-0.20); BASOPHILS % (AUTO) 0.5 % (0.0-5.0); EOSINOPHILS # (AUTO) 0.11 K/uL (0.00-0.70); EOSINOPHILS % (AUTO) 1.8 % (0.0-8.0); IMMATURE GRANULOCYTE ABSOLUTE 0.02 K/uL (0-1); LYMPHOCYTES # (AUTO) 1.2 K/uL (1.0-4.8); MEAN CORPUSCULAR HEMOGLOBIN 32.3 pg (27.0-33.0); MEAN CORPUSCULAR HGB CONC 31.8 g/dL (32.0-36.0); MEAN CORPUSCULAR VOLUME 101.3 fL (79-99); MONOCYTES # (AUTO) 0.3 K/uL (0.1-1.0); MONOCYTES % (AUTO) 5.3 % (3.0-13.0); NEUTROPHILS # (AUTO) 4.6 K/uL (1.8-7.7); NEUTROPHILS % (AUTO) 73.1 % (40.0-77.0); PLATELET COUNT (AUTO) 115 K/uL (130-400); RED BLOOD CELL COUNT(AUTO) 3.75 MIL/uL (4.50-6.20); RED CELL DISTRIBUTION WIDTH 15.2 % (11.0-15.5); WHITE BLOOD COUNT (AUTO) 6.3 K/uL (4.8-10.8)
[2023-08-22 12:48] LABS: ALBUMIN 3.7 g/dL (3.5-5.0); CREATININE 5.5 mg/dL (0.5-1.5); INR 1.06 (0.85-1.15); POTASSIUM 4.6 mmol/L (3.5-5.1); PROTHROMBIN TIME 12.2 SEC (9.6-11.6)
[2023-08-22 12:49] LABS: PARTIAL THROMBOPLASTIN TIME 30.1 SEC (26.3-35.5)
[2023-08-22 12:51] LABS: BILIRUBIN,TOTAL 0.3 mg/dL (0.2-1.0); TOTAL PROTEIN, SERUM 7.3 g/dL (6.0-8.3)
[2023-08-22 15:00] VITALS: BP 166/59; PULSE 55; RESP 18; O2SAT 98
== END 2023-08-22 17:01 | disposition left against medical advice (07) ==
LOC: EDH 11:32
DX: I12.0 Hypertensive chronic kidney disease with stage 5 chronic kidney disease or end stage renal disease (principal); N18.6 End stage renal disease; Z99.2 Dependence on renal dialysis; Z98.890 Other specified postprocedural states
CPT/HCPCS: 36415; 80053; 85025; 85610; 85730

== ENCOUNTER 2023-08-23 14:42 | Observation (INO) | payer OTHER ==
[~2023-08-23] VITALS: Ht 177.8 cm; Wt 46.6 kg
[2023-08-23 15:45] LABS: CREATININE 6.5 mg/dL (0.5-1.5); POTASSIUM 4.7 mmol/L (3.5-5.1)
[2023-08-23 16:15] LABS: BASOPHILS # (AUTO) 0.04 K/uL (0.00-0.20); BASOPHILS % (AUTO) 0.7 % (0.0-5.0); EOSINOPHILS % (AUTO) 1.7 % (0.0-8.0); HEMATOCRIT 37.9 % (42-54); IMMATURE GRANULOCYTE ABSOLUTE 0.02 K/uL (0-1); LYMPHOCYTES # (AUTO) 1.5 K/uL (1.0-4.8); LYMPHOCYTES % (AUTO) 25.2 % (21.0-51.0); MEAN CORPUSCULAR HGB CONC 31.9 g/dL (32.0-36.0); MEAN CORPUSCULAR VOLUME 100.3 fL (79-99); MONOCYTES # (AUTO) 0.4 K/uL (0.1-1.0); MONOCYTES % (AUTO) 6.3 % (3.0-13.0); NEUTROPHILS # (AUTO) 3.9 K/uL (1.8-7.7); NEUTROPHILS % (AUTO) 65.8 % (40.0-77.0); PLATELET COUNT (AUTO) 141 K/uL (130-400); RED BLOOD CELL COUNT(AUTO) 3.78 MIL/uL (4.50-6.20); RED CELL DISTRIBUTION WIDTH 15.1 % (11.0-15.5); WHITE BLOOD COUNT (AUTO) 5.9 K/uL (4.8-10.8)
[2023-08-23 16:25] LABS: INR 1.07 (0.85-1.15); PROTHROMBIN TIME 12.4 SEC (9.6-11.6)
[2023-08-23 16:26] LABS: PARTIAL THROMBOPLASTIN TIME 31.1 SEC (26.3-35.5)
[2023-08-23] MEDS ORDERED: DEXTROSE 50%-WATER 50 ML DISP.SYRIN IV PRN (16:30)
[2023-08-23] MEDS ORDERED: IPRATROPIUM/ALBUTEROL SULFATE 3 ML SOLUTION IH PRN (16:30)
[2023-08-23] MEDS ORDERED: ACETAMINOPHEN 500 MG TABLET PO PRN (16:30)
[2023-08-23] MEDS ORDERED: ONDANSETRON 4MG INJ IVP PRN (16:30)
[2023-08-23] MEDS ORDERED: HYDRALAZINE 20MG/ML VIAL IV PRN (16:30)
[2023-08-23] MEDS ORDERED: GLUCAGON 1MG KIT 1 MG ML IM PRN (16:30)
[2023-08-23 16:36] LABS: HEMOGLOBIN A1C 4.4 % (4.0-6.0)
[2023-08-23 16:39] LABS: ALBUMIN 3.9 g/dL (3.5-5.0); BILIRUBIN,DIRECT 0.1 mg/dL (0.0-0.3); BILIRUBIN,TOTAL 0.3 mg/dL (0.2-1.0); TOTAL PROTEIN, SERUM 7.8 g/dL (6.0-8.3)
[2023-08-23 16:45] VITALS: PULSE 59; RESP 18; O2SAT 99
[2023-08-23] MEDS ORDERED: AMLODIPINE 5 MG TAB ONE (19:36)
[2023-08-23] MEDS: AMLODIPINE 5 MG TAB PO SCH (19:46)
[2023-08-23 22:05] VITALS: BP 189/98; PULSE 64; RESP 19
[2023-08-23 23:57] VITALS: O2SAT 96
[2023-08-24] VITALS (26 sets, daily range): BP systolic 75–184; BP diastolic 46–96; PULSE 56–86; RESP 14–20; TEMP 97.7–97.9; O2SAT 98
[2023-08-24 04:38] LABS: HEMATOCRIT 38.1 % (42-54); MEAN CORPUSCULAR HEMOGLOBIN 32.3 pg (27.0-33.0); MEAN CORPUSCULAR HGB CONC 31.5 g/dL (32.0-36.0); MEAN CORPUSCULAR VOLUME 102.7 fL (79-99); RED BLOOD CELL COUNT(AUTO) 3.71 MIL/uL (4.50-6.20); RED CELL DISTRIBUTION WIDTH 15.2 % (11.0-15.5); WHITE BLOOD COUNT (AUTO) 6.7 K/uL (4.8-10.8)
[2023-08-24 04:43] LABS: INR 1.07 (0.85-1.15); PARTIAL THROMBOPLASTIN TIME 28.3 SEC (26.3-35.5); PROTHROMBIN TIME 11.6 SEC (9.6-11.6)
[2023-08-24 04:44] LABS: CREATININE 6.8 mg/dL (0.5-1.5); MAGNESIUM 2.7 mg/dL (1.80-2.40); PHOSPHORUS 8.3 mg/dL (2.5-4.9); POTASSIUM 4.7 mmol/L (3.5-5.1)
[2023-08-24 05:51] LABS: % IRON SATURATION 18.8 % (30-44)
[2023-08-24] MEDS: Vitamin B Complex/Vit C/Folic Acid PO SCH (09:00)
[2023-08-24] MEDS ORDERED: LIDOCAINE HCL 400MG/20ML VIAL ONE (15:41)
[2023-08-24] MEDS ORDERED: HEPARIN 1,000 UNIT VIAL ONE (15:42)
[2023-08-24] MEDS ORDERED: MIDAZOLAM HCL 1 MG/ML 2ML VIAL ONE (16:01)
[2023-08-24] MEDS: AMLODIPINE 5 MG TAB PO SCH (20:52)
[2023-08-24] MEDS ORDERED: HEPARIN 5,000 UNIT VIAL IRRIG PRN (22:00)
[2023-08-25] VITALS (20 sets, daily range): BP systolic 73–157; BP diastolic 41–87; PULSE 61–77; RESP 14–20; TEMP 98–98.1; O2SAT 97
[2023-08-25 03:51] LABS: BASOPHILS # (AUTO) 0.04 K/uL (0.00-0.20); BASOPHILS % (AUTO) 0.7 % (0.0-5.0); EOSINOPHILS # (AUTO) 0.09 K/uL (0.00-0.70); EOSINOPHILS % (AUTO) 1.7 % (0.0-8.0); HEMATOCRIT 35.7 % (42-54); IMMATURE GRANULOCYTE ABSOLUTE 0.02 K/uL (0-1); LYMPHOCYTES # (AUTO) 1.6 K/uL (1.0-4.8); LYMPHOCYTES % (AUTO) 29.2 % (21.0-51.0); MEAN CORPUSCULAR HEMOGLOBIN 32.1 pg (27.0-33.0); MEAN CORPUSCULAR HGB CONC 32.8 g/dL (32.0-36.0); MEAN CORPUSCULAR VOLUME 97.8 fL (79-99); MONOCYTES # (AUTO) 0.4 K/uL (0.1-1.0); MONOCYTES % (AUTO) 7.7 % (3.0-13.0); NEUTROPHILS # (AUTO) 3.3 K/uL (1.8-7.7); NEUTROPHILS % (AUTO) 60.3 % (40.0-77.0); PLATELET COUNT (AUTO) 139 K/uL (130-400); RED BLOOD CELL COUNT(AUTO) 3.65 MIL/uL (4.50-6.20); RED CELL DISTRIBUTION WIDTH 14.8 % (11.0-15.5); WHITE BLOOD COUNT (AUTO) 5.4 K/uL (4.8-10.8)
[2023-08-25 04:07] LABS: CREATININE 4.5 mg/dL (0.5-1.5); PHOSPHORUS 5.9 mg/dL (2.5-4.9)
[2023-08-25] MEDS: Vitamin B Complex/Vit C/Folic Acid PO SCH (09:04)
[2023-08-25] MEDS ORDERED: AMLO5TAB4 PO (11:13)
[2023-08-25 18:14] LABS: HEPATITIS B CORE AB TOTAL Non-Reactive (Nonreactive); HEPATITIS B SURFACE ANTIBODY Negative (Reactive); HEPATITIS B SURFACE ANTIGEN Non-Reactive (Nonreactive)
== END 2023-08-25 18:15 | disposition home or self-care (01) ==
LOC: EDH 14:42 → INTOOBSV 15:58 → EDHIP 15:58 → 4CH 21:56
PROVIDERS: ADMIT Internal Medicine; ATTEND Internal Medicine
DX: T82.41XA Breakdown (mechanical) of vascular dialysis catheter, initial encounter (principal); D64.9 Anemia, unspecified; R62.7 Adult failure to thrive; E87.70 Fluid overload, unspecified; E78.5 Hyperlipidemia, unspecified; I13.11 Hypertensive heart and chronic kidney disease without heart failure, with stage 5 chronic kidney disease, or end stage renal disease; E11.22 Type 2 diabetes mellitus with diabetic chronic kidney disease; N18.6 End stage renal disease; E43 Unspecified severe protein-calorie malnutrition; R54 Age-related physical debility; Z99.2 Dependence on renal dialysis; Z68.1 Body mass index [BMI] 19.9 or less, adult; Z85.51 Personal history of malignant neoplasm of bladder; Z85.038 Personal history of other malignant neoplasm of large intestine
CPT/HCPCS: 96374; 99284; 83036; 84443; 80076; 83735 ×2; 80048 ×3; 85025 ×2; 85610 ×2; 85730 ×2; 36415 ×3; 71045; 77001; 36581; 83540; 83550; 84100 ×2; 82728; 85027; 84439; 82607; 84481; 82746; 82533; 90935 ×2; 86706; 87340; 86704; J0360; G0378 ×19; C1769; C1750; J3490; J2250; J1644 ×3; 99156; G0257